=== PATIENT | female | born 1945 | race Caucasian/White ===

== ENCOUNTER 2021-09-30 13:50 | Outpatient (CLI) | payer OTHER, SELFPAY ==
--- NOTE | 2021-09-30 14:00 | CRLHL7_ITS ---
For Patients: As a result of the Century Cures Act, medical imaging exams and procedure reports are released immediately into your electronic medical record. You may view this report before your referring provider. If you have questions, please contact your health care provider. BILATERAL SCREENING MAMMOGRAM WITH COMPUTER-AIDED DETECTION AND TOMOSYNTHESIS TECHNIQUE: CC and MLO views were obtained. These mammographic images have been obtained using full-field digital technique. These mammographic images were interpreted with the benefit of computer-aided detection. Breast Tomosynthesis was used in this interpretation. COMPARISON FILM: 11/24/19, 11/18/18, 02/11/17 FINDINGS: There are scattered areas of fibroglandular density IMPRESSION: There is no radiographic evidence for malignancy. ASSESSMENT: BI-RADS Category 1: Negative RECOMMENDATION: Routine screening mammogram in 1 year. A lay language report of this examination will be provided to the patient. Mike Hooker M.D. Diagnostic Radiologist [email or web address] SHAUNA/Dictated by: Mike Hooker MD @ 10/01/2021 8:29:00 AM (Electronically Signed)
== END 2021-09-30 13:51 | disposition home or self-care (01) ==
LOC: MAMMO 13:52
PROVIDERS: PCP Internal Medicine; Visit Provider Internal Medicine
DX: Z12.31 Encounter for screening mammogram for malignant neoplasm of breast (principal)
CPT/HCPCS: 77063; 77067

== ENCOUNTER 2021-12-18 12:41 | Outpatient (CLI) | payer OTHER, SELFPAY ==
--- NOTE | 2021-12-18 13:00 | CRLHL7_ITS ---
For Patients: As a result of the Century Cures Act, medical imaging exams and procedure reports are released immediately into your electronic medical record. You may view this report before your referring provider. If you have questions, please contact your health care provider. INDICATION: Right non-arteritic ischemic optic neuropathy. TECHNIQUE: Multiplanar multisequence MR imaging acquired through the brain and orbits prior to and following intravenous contrast. COMPARISON: MRI brain 11/19/2012. FINDINGS: The extraocular muscles and lacrimal glands are symmetric in size and enhancement. No intraorbital mass or edema. No signal abnormality or pathologic enhancement within the optic nerves. No mass effect on the optic chiasm. Thinning of the right ocular lens. Prominence of the ventricles and sulci compatible with minimal diffuse cerebral volume loss. No mass effect or midline shift. Stable few small T2 FLAIR hyperintensities in the supratentorial white matter, nonspecific. No pathologic intracranial enhancement. No diffusion restriction to suggest acute infarction. No intracranial hemorrhage or pathologic extra-axial fluid collection. The major arterial flow voids of the skullbase are preserved. Small left maxillary sinus retention cyst. Minimal ethmoid sinus mucosal thickening. Trace right mastoid fluid. IMPRESSION: 1. No acute intracranial abnormality. 2. Stable few small T2 FLAIR hyperintensities in the supratentorial white matter are nonspecific, though most typical for sequelae of mild chronic microvascular ischemic changes or migraine headaches. 3. Thinning of the right ocular lens, compatible with prior cataract surgery. Otherwise, unremarkable MRI of the orbits. Dictated by Jarred Nicole MD @ 12/18/2021 5:56:26 PM (Electronically Signed)
== END 2021-12-18 12:42 | disposition home or self-care (01) ==
LOC: MRI 12:43
PROVIDERS: PCP Internal Medicine; Visit Provider Internal Medicine
DX: H47.011 Ischemic optic neuropathy, right eye (principal); I67.82 Cerebral ischemia
CPT/HCPCS: 70543; 70553; A9575

== ENCOUNTER 2022-01-09 07:24 | Outpatient (CLI) | payer OTHER, SELFPAY ==
[2022-01-09 11:25] LABS: Chloride* 111 mmol/L (96-114); Potassium* 4.2 mmol/L (3.6-5.1); Sodium* 141 mmol/L (135-149)
[2022-01-09 11:28] LABS: Blood Urea Nitrogen* 21 mg/dL (7-30); Carbon Dioxide* 23 mmol/L (20-32); Cholesterol* 139 mg/dL (90-199); Creatinine* 0.6 mg/dL (0.5-1.5); Estimated Glomerular Filt Rate 94 ml/min; Glucose* 99 mg/dL (60-115); Triglycerides* 69 mg/dL (40-149)
[2022-01-09 11:29] LABS: HDL Cholesterol* 74 mg/dL (>=50); LDL Cholesterol Calculated 51 mg/dL (<100)
[2022-01-09 11:49] LABS: Vitamin D 25 Hydroxy* 61 ng/mL (30-80)
[2022-01-09 12:02] LABS: TSH With Reflex to FT4* 0.426 uIU/mL (0.270-4.200)
== END 2022-01-09 07:25 | disposition home or self-care (01) ==
LOC: NFLDREF 07:24
PROVIDERS: PCP Internal Medicine; Visit Provider Internal Medicine
DX: E78.5 Hyperlipidemia, unspecified (principal); I10 Essential (primary) hypertension; M85.80 Other specified disorders of bone density and structure, unspecified site; E03.9 Hypothyroidism, unspecified
CPT/HCPCS: 80048; 80061; 82306; 84443

== ENCOUNTER 2022-11-04 09:50 | Outpatient (CLI) | payer OTHER, SELFPAY | END 2022-11-04 09:51 | disposition home or self-care (01) | PROVIDERS: PCP Internal Medicine; Visit Provider Internal Medicine | DX: E78.5 Hyperlipidemia, unspecified (principal); E03.9 Hypothyroidism, unspecified; I10 Essential (primary) hypertension; M85.80 Other specified disorders of bone density and structure, unspecified site | CPT/HCPCS: 80048; 80061; 82306; 84439; 84443 ==

== ENCOUNTER 2022-11-19 12:48 | Outpatient (CLI) | payer OTHER, SELFPAY ==
--- NOTE | 2022-11-19 13:00 | CRLHL7_ITS ---
For Patients: As a result of the Century Cures Act, medical imaging exams and procedure reports are released immediately into your electronic medical record. You may view this report before your referring provider. If you have questions, please contact your health care provider. DXA BONE MINERAL DENSITY STUDY Reason for exam: Osteopenia. Current height (in): 62. Weight (lb): 120. Menopause age: 53. Ethnicity: White. 1. Have you had a previous hip or vertebral fracture? No. 2. Have you had any fractures during your adult life which did not result from significant trauma (e.g., auto accident)? No. 3. Did either of your parents have a hip fracture? Yes. 4. Do you smoke? No. 5. Have you ever taken Glucocorticoids? No. 6. Do you have rheumatoid arthritis? No. 7. Do you have secondary osteoporosis? No. 8. Do you drink 3 or more alcoholic drinks per day? No. 9. Are you being treated for osteoporosis? *No. 10. Have you ever taken any of the following medications: Actonel, Evista, Fosamax, Miacalcin, Reclast, Boniva, Forteo, HRT (i.e. estrogen/hormone therapy), Protelos, Prolia, Vitamin D, Calcium, other ??? please specify. ANSWER: Yes, vitamin D, calcium. 11. Do you have any of the following medical conditions: Anorexia or bulimia, asthma or emphysema, end stage renal disease, hyperparathyroidism, any seizure disorders, cancer, inflammatory bowel diseases, hysterectomy, other ??? please specify. ANSWER: Yes, Asthma or emphysema. 12. What was your maximum height (inches)? 62. 13. Do you perform weight bearing exercise regularly? Yes. 14. Do you regularly consume dairy products? Yes. 15. Do you drink caffeinated beverages? Yes. 16. At what age did your period start? 12. 17. Are you premenopausal? No. 18. How many full term pregnancies have you had? 2 19. Have you ever missed your period for more than 6 months in a row (not including or menopause)? No. TECHNIQUE: Bone mineral density study was performed using the [employer]. FINDINGS: The results of the study expressed as bone mineral density (BMD) are as follows: Lumbar spine L1 to L4: BMD: 1.071 g/cm2. T-score: 0.2. Z-score: 2.7. Neck Left: BMD: 0.591 g/cm2. T-score: -2.3. Z-score: -0.2 Right: BMD: 0.674 g/cm2. T-score: -1.6. Z-score: 0.6. Total Left: BMD: 0.712 g/cm2. T-score: -1.9. Z-score: -0.0. Right: BMD: 0.793 g/cm2. T-score: -1.2. Z-score: 0.6. IMPRESSION: Osteopenia. *Comparison exams done prior to 07/2019 were performed on different unit, [facility]. COMPARISON: Compared with scan of 11/24/2019, the bone mineral density has increased by 0.7 percent at the spine and decreased by 3.0 percent at the hip. FRAX 10-year Fracture Risk Major Osteoporotic Fracture: 27 percent Hip Fracture: 17 percent Reported Risk Factors: [place] () Neck BMD= 0.597, BMI= 21.9, parental fracture Mike Hooker M.D. Diagnostic Radiologist [email or web address] SHAUNA/Dictated by: Mike Hooker MD @ 11/20/2022 8:32:00 AM (Electronically Signed)
== END 2022-11-19 12:49 | disposition home or self-care (01) ==
LOC: RAD 12:49
PROVIDERS: PCP Internal Medicine; Visit Provider Internal Medicine
DX: M85.88 Other specified disorders of bone density and structure, other site (principal)
CPT/HCPCS: 77080

== ENCOUNTER 2023-01-26 10:07 | Outpatient (CLI) | payer OTHER, SELFPAY ==
--- NOTE | 2023-01-26 10:30 | CRLHL7_ITS ---
For Patients: As a result of the Century Cures Act, medical imaging exams and procedure reports are released immediately into your electronic medical record. You may view this report before your referring provider. If you have questions, please contact your health care provider. INDICATION: Chronic cough TECHNIQUE: Chest 2 views. COMPARISON: None. FINDINGS: Cardiovascular and mediastinum: Heart size and vasculature are normal in caliber and appearance. Lungs and pleural spaces: Lungs are clear. No sign of infiltrate or mass. No sign of pleural effusion. No pneumothorax. Bones and soft tissues: No significant findings. IMPRESSION: No acute cardiopulmonary process. Dictated by Ezequiel Muhammad MD @ 01/26/2023 10:38:53 AM (Electronically Signed)
== END 2023-01-26 10:08 | disposition home or self-care (01) ==
PROVIDERS: PCP Internal Medicine; Visit Provider Internal Medicine
DX: R05.3 Chronic cough (principal)
CPT/HCPCS: 71046

== ENCOUNTER 2023-01-30 09:07 | Outpatient (CLI) | payer OTHER, SELFPAY ==
--- NOTE | 2023-01-30 09:15 | CRLHL7_ITS ---
For Patients: As a result of the Century Cures Act, medical imaging exams and procedure reports are released immediately into your electronic medical record. You may view this report before your referring provider. If you have questions, please contact your health care provider. BILATERAL SCREENING MAMMOGRAM WITH COMPUTER-AIDED DETECTION AND TOMOSYNTHESIS TECHNIQUE: CC and MLO views were obtained. These mammographic images have been obtained using full-field digital technique. These mammographic images were interpreted with the benefit of computer-aided detection. Breast Tomosynthesis was used in this interpretation. COMPARISON FILM: 09/30/21, 11/24/19, 11/18/18. FINDINGS: The breasts are heterogeneously dense, which may obscure small masses IMPRESSION: There is no radiographic evidence for malignancy. ASSESSMENT: BI-RADS Category 1: Negative RECOMMENDATION: Routine screening mammogram in 1 year. A lay language report of this examination will be provided to the patient. Mike Hooker M.D. Diagnostic Radiologist [email or web address] SHAUNA/Dictated by: Mike Hooker MD @ 01/30/2023 10:27:00 AM (Electronically Signed)
== END 2023-01-30 09:08 | disposition home or self-care (01) ==
LOC: MAMMO 09:08
PROVIDERS: PCP Internal Medicine; Visit Provider Internal Medicine
DX: Z12.31 Encounter for screening mammogram for malignant neoplasm of breast (principal); R92.2 Inconclusive mammogram
CPT/HCPCS: 77063; 77067

== ENCOUNTER 2023-02-04 07:59 | Outpatient (CLI) | payer OTHER, SELFPAY ==
--- NOTE | 2023-02-04 08:15 | CRLHL7_ITS ---
For Patients: As a result of the Century Cures Act, medical imaging exams and procedure reports are released immediately into your electronic medical record. You may view this report before your referring provider. If you have questions, please contact your health care provider. INDICATION: Chronic cough TECHNIQUE: Modified barium swallow. Fluoroscopic time 47 seconds. FINDINGS/IMPRESSION: There is spillage of contrast during solid food ingestion into the piriform sinuses. However, no penetration or aspiration. No obstruction to the flow barium. Dictated by Mike Hooker MD @ 02/04/2023 10:41:18 AM (Electronically Signed)
--- NOTE | 2023-02-04 13:48 | SLP.EVAL ---
Dr. Katalina Sandhu wanted me to send you a copy of my swallow study report. Thank you Meredith Adkins GLASS ROLLING MACHINE OPERATOR GLASS ROLLING MACHINE OPERATOR Zeldaal GLASS ROLLING MACHINE OPERATOR Abhijeet Start: 02/04/23 08:49 Freq: Status: Active Protocol: Document 02/04/23 08:50 JOHN (Rec: 02/04/23 09:05 [facility] [id number]) E-signed By Meredith Adkins CCC, GLASS ROLLING MACHINE OPERATOR GLASS ROLLING MACHINE OPERATOR System Review History & Reason For Referral Type of Speech Evaluation Modified Barium Swallow Evaluation Rehabilitation Order Evaluation Date of Order 01/23/23 Reason for Referral coughing sometimes with eating and drinking and other times at night. Treatment Diagnosis dysphagia Hearing Information Hearing Status hard of hearing Patient Orientation Orientation & Mental Status within normal limits GLASS ROLLING MACHINE OPERATOR Initial Assessment/POC Assessment & Impression Assessment/Impression Patient is a 77 year old female referred for a modified barium swallow study due to reports of coughing. She reports that sometimes she coughs with eating or drinking cold things such as ice cream or iced coffee. She also reports coughing at night when in bed. She has a history of reflux and takes medication for this. She reports she was diagnosed with asthma a number of years ago. She also has celiac disease. ORAL MOTOR FUNCTION AND DENTITION Patient able to adequately move tongue and lips and has adequate dentition. THIN LIQUID Patient took several sips of thin liquid by cup. She was able to initiate a swallow immediately and no penetration or aspiration occurred. PUREE Patient given a teaspoon of puree. She was able to manipulate and swallow without penetration, aspiration or pharyngeal residue. CRACKER WITH BARIUM PUREE Patient given a cracker ( gluten free) mixed with barium puree. She was able to chew the cracker well. She had premature spillage to the pyriform sinuses before initiating a swallow but once swallowed no penetration, aspiration or pharyngeal residue occurred. IMPRESSIONS AND RECOMMENDATIONS Patient did not exhibit any penetration or aspiration on any trials of food or liquid. She had premature spillage to the pyriform sinuses with a cracker solid while she was chewing but no penetration or aspiration. She was able to initiate a swallow immediately with thin liquids and had no penetration or aspiration with any liquid trial. Recommended to patient that she avoid straws and when eating, take small bites and try to swallow sooner. Images, results and recommendations reviewed with patient and questions answered. Therapist Signature & License # I Certify That Therapy Services Provided Therapist Signature & License Number Meredith Adkins CCC-GLASS ROLLING MACHINE OPERATOR, # [id number] Physician Signature Signature of Physician Indicates Medically Needed Services Physician Signature & Date Required Please Sign/Date Here Speech/Language Pathology Billing Units Billing Units Eval Swallow Motion Fluoro 1
== END 2023-02-04 08:00 | disposition home or self-care (01) ==
LOC: RAD 08:00
PROVIDERS: PCP Internal Medicine; Visit Provider Internal Medicine
DX: R05.3 Chronic cough (principal)
CPT/HCPCS: 74230; 92611

== ENCOUNTER 2023-04-06 10:19 | Outpatient (RCR) | payer OTHER, SELFPAY | END 2023-08-04 23:59 | disposition home or self-care (01) | PROVIDERS: PCP Internal Medicine; Visit Provider Internal Medicine | DX: R05.9 Cough, unspecified (principal); R13.10 Dysphagia, unspecified; Z51.89 Encounter for other specified aftercare | CPT/HCPCS: 92610 ==

== ENCOUNTER 2023-09-14 15:38 | Outpatient (CLI) | payer OTHER, SELFPAY | END 2023-09-14 15:39 | disposition home or self-care (01) | LOC: NFLDREF 15:46 | PROVIDERS: PCP Internal Medicine; Visit Provider Internal Medicine | DX: R10.12 Left upper quadrant pain (principal) | CPT/HCPCS: 80053 ==

== ENCOUNTER 2023-09-18 08:49 | Outpatient (CLI) | payer OTHER, SELFPAY ==
--- NOTE | 2023-09-18 09:00 | CRLHL7_ITS ---
For Patients: As a result of the Century Cures Act, medical imaging exams and procedure reports are released immediately into your electronic medical record. You may view this report before your referring provider. If you have questions, please contact your health care provider. Indication: LUQ Pain/discomfort x2 weeks. Swelling feeling. Technique: Noncontrast CT abdomen and pelvis performed. Please note that all CT scans at this facility use dose modulation, iterative reconstruction, and/or weight-based dosing when appropriate to reduce radiation dose to as low as reasonably achievable. Comparison: CT PET 08/31/2017 Findings: Dependent scarring is present within both lung bases. No pleural effusion. No acute infiltrate. Small hiatal hernia. Noncontrast enhanced liver appears normal. The spleen is normal in size. No splenomegaly. Incidental splenule. Pancreas is normal. Normal adrenal glands. Kidneys are within normal limits. Incidental duodenal diverticulum. Vascular calcifications. Normal ureters. Bladder normal. Calcified uterine fibroid measures 2 cm. Periuterine calcifications. Sigmoid diverticulosis. No diverticulitis. No bowel obstruction or free air. No free fluid or abscess. Normal appendix. Increased density of the stool is present. Degenerative disc disease at several levels particularly at L5-S1 and L2-3. Mild degenerative anterolisthesis of L4 on L5. Impression: No splenomegaly or ascites. Moderate colonic stool burden with increased density of the stool suggesting delayed transit/inspissation. Mild colonic diverticulosis without diverticulitis. Small uterine fibroids, similar to the prior study. Please note that all CT scans at this facility use dose modulation, iterative reconstruction, and/or weight-based dosing when appropriate to reduce radiation dose to as low as reasonably achievable. Dictated by Mike Hooker MD @ 09/18/2023 3:04:31 PM (Electronically Signed)
== END 2023-09-18 08:50 | disposition home or self-care (01) ==
LOC: CT 08:49
PROVIDERS: PCP Internal Medicine; Visit Provider Internal Medicine
DX: R10.12 Left upper quadrant pain (principal); K57.30 Diverticulosis of large intestine without perforation or abscess without bleeding; D25.9 Leiomyoma of uterus, unspecified
CPT/HCPCS: 74176

== ENCOUNTER 2023-11-04 10:06 | Outpatient (CLI) | payer OTHER, SELFPAY | END 2023-11-04 10:07 | disposition home or self-care (01) | LOC: NFLDREF 11-09 06:48 | PROVIDERS: PCP Internal Medicine; Referring Provider Internal Medicine; Visit Provider Internal Medicine | DX: E03.9 Hypothyroidism, unspecified (principal); E78.5 Hyperlipidemia, unspecified; I10 Essential (primary) hypertension; M85.80 Other specified disorders of bone density and structure, unspecified site | CPT/HCPCS: 80048; 80061; 82306; 84443 ==

== ENCOUNTER 2024-01-01 12:03 | Outpatient (CLI) | payer OTHER, SELFPAY | END 2024-01-01 12:04 | disposition home or self-care (01) | LOC: NFLDREF 01-02 20:15 | PROVIDERS: PCP Internal Medicine; Referring Provider Internal Medicine; Visit Provider Family Medicine | DX: R39.9 Unspecified symptoms and signs involving the genitourinary system (principal); N39.0 Urinary tract infection, site not specified | CPT/HCPCS: 87086; 87186 ==

== ENCOUNTER 2024-05-23 10:00 | Outpatient (RCR) | payer OTHER, SELFPAY ==
--- NOTE | 2024-02-26 12:14 | OT.OPOE ---
OT Outpatient Ortho Eval OT Outpatient Ortho Eval* Start: 02/26/24 11:23 Freq: Status: Active Protocol: Document 02/26/24 11:23 LCN (Rec: 02/26/24 12:08 LCN [id number]) E-signed By Effie Pepe, OTR/L, CLT OT OP Ortho Eval Details Complexity Complexity Low Insurance Information Insurance Information Medicare B Insurance Information Comments [employer] Gold Choice Outpatient History/Precautions Current Condition/Medical Diagnosis Referring Provider Dr. Wilkins /Attending. PCP is Dr. Darden. Medical Diagnoses R elbow pain after mechanical fall. Pt with symptoms of L carpal tunnel syndrome as noted below . Treatment Diagnosis R elbow pain and stiffness, daily numbness with L hand during all driving tasks. Date of Onset 12/08/23 Medical Conditions Depression,HTN,Respiratory, Arthritis Other Conditions Celiac Disease, Astma, Hypothyroidism pulmonary nodule, Cataracts.biopsy of breast and thyroid. History of CTR in the 70's, R CT issues with OT 2014, 2017. 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 CUrrently having symptoms of numbness Medical/Functional History Prior Level of Function/Mobility Pt recently , lives (I) in her home. Son lives in [place] with two active granddaughters 10-11 yrs old. 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 Enjoys playing piano, reading, vegetable gardening, lives near [place]. 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 Pt also shares in our visit that she has been having daily numbness in L hand, especially while driving and gripping/reading her books. Playing piano feels good. R elbow pain hurts worst when weightbearing /leaning/rolling onto it, has episodes of stinging and burning pain that are intermittent. X ray performed 01/14/24, no known fractures or osseous changes noted. Heating 3-4x/week feels helpful. Pain Assessment Pain Pain Yes Pain Comments 0-7/10 with weightbearing into R elbow Range of Motion and Strength Shoulder Range of Motion and Strength Shoulder Range of Motion and Strength WNL, Balanced strength with MMT 5/5 B. Elbow/Forearm Range of Motion and Strength Elbow/Forearm Range of Motion and WNL, Balanced strength with Strength MMT 5/5 B. No pain with testing. Overpressure into EL FL feels stiffness. Wrist Range of Motion and Strength Wrist Range of Motion and Strength WNL, Balanced strength with MMT 5/5 B. Hand/Finger/Thumb Range of Motion and Strength Hand/Finger/Thumb Range of Motion and Palpation-- Point tender at R Strength tip of olecranon and some edema pocketing at triceps insert, flexor retinaculum. Hand Pinch/Senior Mainframe Programmer Analyst Strength Hand Pinch/Senior Mainframe Programmer Analyst Strength Hand Pinch/Senior Mainframe Programmer Analyst Strength Left Hand,Right Hand Left Hand Senior Mainframe Programmer Analyst Strength Position 1 in Elbow 47 Flexion (lbs) Senior Mainframe Programmer Analyst Strength Position 2 in Elbow 47 Extension (lbs) Lateral Pinch Strength (lbs) 15 Right Hand Senior Mainframe Programmer Analyst Strength Position 1 in Elbow 46 Flexion (lbs) Senior Mainframe Programmer Analyst Strength Position 2 in Elbow 44 Extension (lbs) Lateral Pinch Strength (lbs) 15 OT Objective Data Hand Hand Dominance Right Hand Function Able to make full fitst, table top and oppose thumbs to base of small finger, but has regular hand joint pain stiffness.,, with bony cahges at all MCP and PIP rows. Sensation Sensation Assessment Summary Comments L hand numbness daily with driving tasks, sleeping and ripping her book, moderate intensity, taking 5-10 min to resolve after stretching. Upper Extremity Special Tests Median Nerve-Carpal Tunnel Durkan's Test Negative Right,Positive Left OT Problems Problems Problems Pain,Sensory Sensitivity, Lifting,Gripping,Pinching Problems Comments driving, reading with L side. Rolling and weightbearing into R elbow. Other Problems Opening Containers,Sleeping Patient Potential Excellent Assessment Assessment Assessment Given Elicia's?difficulty with edema, pain of R elbow, symptoms of L carpal tunnel syndrome per daily hand numbness with driving, sustained gripping, sleep, (+ ) Durkan's compression test of L hand and B hand stiffness/ OA changes limiting daily tasks, and she would benefit from skilled OT to address these areas. Occupational Therapy Treatment Plan - OP Potential Rehabilitation Potential Excellent Set Goals Goals Set with Patient Yes Goals Goals In 8-10 weeks, Elicia will demonstrate:? 1) Decreased pn/numbness to <2 /10 80% of the time with L hand sustained gripping, reading books and driving for 30 minutes. Pain < 2/10 with R elbow during rolling in bed, reading a book. 2) I HEP for stretching, gradual strengthening, joint protection and self mgmt strategies. 3)??Pt to be fit with functional bracing (for CMC, wrist,) and use adaptive strategies to protect joint integrity to support less pain with ADL. Treatment Plan Treatment Plan Evaluation,Edema Control, Iontophoresis,Joint Mobilization,Manual Therapy, Splinting,Ultrasound Expected Frequency 1-2x Week Expected Duration 8-10 Weeks Home Program Home Program Home Program Specifics Pt given info to order neoprene R elbow velcro sleeve with padding for night times and tetragrip E compression for R elbow, daytime compression. Look into night brace for L wrist noc. Certification Certification Statement I Certify That: Therapy Services Provided Certification Information Clinic ID # [id number] Initial Certification Date 02/26/24 Recertification Due Date 05/26/24 Provider Signature Required Yes Provider Signature Shows Agreement With POC & Medical Necessity Physician NPI Number Write NPI# Here Physician Comment/Change Comment or Changes Physician Signature & Date Requested Please Sign/Date Here
== END 2024-09-20 23:59 | disposition home or self-care (01) ==
PROVIDERS: PCP Internal Medicine; Visit Provider Family Medicine
DX: M25.521 Pain in right elbow (principal); Z51.89 Encounter for other specified aftercare
CPT/HCPCS: 97035; 97110; 97140; 97165; 97530; X5282

== ENCOUNTER 2024-06-23 07:13 | Outpatient (RCR) | payer OTHER, SELFPAY ==
--- NOTE | 2024-06-23 13:06 | PT.OPEX ---
PT [place] [facility] PT [facility] Outpatient Eval Start: 06/23/24 08:52 Freq: Status: Active Protocol: Document 06/23/24 08:53 PRESLEY (Rec: 06/23/24 13:01 PRESLEY [id number]) E-signed By Manju Weaver DPT Physical Therapy Outpatient Evaluation Insurance Information Recert Due Date 09/21/24 Insurance Name [employer],Medicare B Medical Diagnosis L scapula pain Treating Diagnosis L shoulder/scap/UBN pain, impaired posture, UBN/shoulder muscle tightness, L shoulder weakness, L elbow/forearm/ wrist/hand pain/tingling/ numbness, L UE weakness with difficulty grasping/squeezing/ opening jars, interrupted sleep Subjective Subjective Patient reports L shouder and L shoulder blade pain, tightness, stiffness. Reports falling last Fall in Oct/Nov when she was trying to clean up some trash from the ditch area. She had R elbow pain after the fall. Saw MD in Dec and started with OT for R elbow pain in Feb. Patient reports her R elbow was feeling better but then she flared up L hand tingling/ numbness back in February. Feels she was maybe having some L hand sx last Fall as well but difficult to recall and unsure what flared up her pain/sx. That progressed into L elbow/forearm tingling/ numbness and then eventually L shoulder/shoulder blade pain. L shoulder/UE pain/sx are increased with driving. Tingling/numbness in L forearm /hand are fairly constant, rated 3/10. Patient is R handed. She reports noticing L hand/UE weakness with activities, grasping, squeezing, opening lids/jars. She is active with exercise, walking, some light wts, resistance bands at home. She has been doing her OT exercises. OT recommended she return to MD for her new L UE pain/sx. MD referred to PT for L shoulder pain and referred to ortho. Patient report having appt with Dr Silva on June 07. He injected L wrist. Patient reports some decrease in pain/ sx since the injection but not gone. Pain range 2-8/10 for L shoulder/shoulder blade and pain/sx down L UE. She is using tylenol in the evenings. Sleep is interrupted some, difficult to get comfortable and fall asleep. Using heating pad to L shoulder 3-4x /week. Also using lidocaine patches to L shoulder about 2x /week. States she does not have any additional OT scheduled. No MD follow ups scheduled at this time. Date of Last Physician Visit 05/30/24 Current Work Status Retired Precautions Treatment Precautions/Contraindications fall last , depression , HTN, resp issues, chronic cough, OA Per Dr Silva note - L RC tear, L cubital tunnel syndrome, L carpal tunnel syndrome, possible cervical involvement - return for MRI, EMG as needed. Objective Other/Pertinent Objective Patient was referred to ortho for evaluation and injection. She saw Dr Silva 06/07/24. Per Dr Silva's assessment/ note patient with L RC tear, L CTS, L cubital tunnel syndrome, and possible cervical spine involvement. Patient had L wrist injection and reports some decrease in her L wrist/hand pain/sx after the injection but not gone. Per MD note, next step would caio MRI of shoulder, EMG L UE, MRI of neck. Currently not scheduled for any imaging and no MD follow up scheduled. Assessment Assessment/Impression Patient is a 78 year old female with L shoulder/scap/ UBN pain, impaired posture, UBN/shoulder muscle tightness, L shoulder weakness, L elbow/ forearm/wrist/hand pain/ tingling/numbness, L UE weakness with difficulty grasping/squeezing/opening jars, interrupted sleep. Pain range 2-8/10. Patient reports multiple pain/sx issues starting last when she fell. She had R elbow pain, treated with OT and improved. Patient then had flare up of L wrist/hand tingling/numbness that progressed up to forearm/elbow tingling/numbness, and now up to L shoulder/shoulder blade pain. Patient referred to PT for L shoulder blade pain/ shoulder pain. She is tight, tender with palpation L UBN/ shoulder region. Tightness, dyskinesia with L scap motion with patient reporting some crunching, grinding. Bilateral shoulder AROM is WFL , equal R/L. Patient reports some tightness, pain with L shoulder AROM. L shoulder strength: flex 4-/5 with pain, scap/abd 4-/5 with pain, IR/ ER 4/5. 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 Reviewed with patient that PT focus would be on UBN/ shoulder region. Patient to continue with the exercises given to her by OT. Reviewed some forearm, wrist stretching , nerve glides. Discussed with patient that if she is not improving she should return to MD for additional testing with MRI and/or EMG. Also discussed getting an additional OT order to address L cubital tunnel and carpal tunnel syndromes. Patient expressed understanding. Patient would benefit from skilled PT for pain/sx management, return to pain free L shoulder ROM, improved L scap ROM/mobility, posture/ body mechanics training, L shoulder/UBN strengthening, return to functional use of L shoulder/UE, and establishment of HEP. Plan of Care Rehabilitation Potential Good Physical Therapy Goals 1. Decrease L shoulder pain to less than/equal to 3/10 with daily activities and with the progression of PT activities over the next 6-8 weeks. 2. Improve L shoulder PROM to WFL over the next 6-8 weeks to prepare for return to functional use of L shoulder/UE. 3. Improve L shoulder AROM to WFL over the next 10-12 weeks for return to functional use of L shoulder/ UE with daily/household activities. 4. Improve L shoulder/UE strength over the next 10-12 weeks for return to full functional use of L shoulder/UE with daily/ household activities. 5. Patient will be I with HEP within 12 weeks for progression toward above goals, ongoing self management of pain/sx, ongoing self improvements in ROM/strength/function, and for return to full functional use of L shoulder/UE with daily/ household activities. Coordination/Communication With Referral Source Treatment Plan/Direct Interventions Manual Therapy,Therapeutic Exercises Frequency/Duration 1x/week Patient Will Be Discharged From Therapy Completion of LTG(s),Skills Plateau,Independent w/HEP, Independently Progressing Evaluation Billing Untimed Code Treatment Minutes 34 Complexity Moderate Certification Information Initial Certification Date 06/23/24 Ending Certification Date 09/21/24 Provider Signature Required Yes Provider Signature Shows Agreement With POC & Medical Necessity Physician NPI Number Write NPI# Here Physician Comment/Change : Physician Signature & Date Requested Please Sign/Date Here
== END 2024-10-21 23:59 | disposition home or self-care (01) ==
PROVIDERS: PCP Internal Medicine; Visit Provider Internal Medicine
DX: M89.8X1 Other specified disorders of bone, shoulder (principal); Z51.89 Encounter for other specified aftercare
CPT/HCPCS: 97110; 97162

== ENCOUNTER 2024-10-03 13:17 | Emergency (ER) | payer OTHER, SELFPAY ==
[2024-10-03] VITALS (12 sets, daily range): BP systolic 156–190; BP diastolic 77–88; PULSE 63–76; RESP 10–28; TEMP 36.2; O2SAT 97–99; BMI 21.8
--- OUTSIDE RECORDS SUMMARY | 2024-10-03 13:22 | XMS_ITS | Encounter Summary ---
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 Phone Unavailable Primary Care Provider Unavailabl e Prior Encounters Date Type Department Care Team Description 03/14/2019 Converted 13x Documents [place] [facility] [address] [place] [phone] <No scans attached> 03/14/2019 Converted CPS Chart Documents [place] [facility] [address] [place] [phone] <No scans attached> Plan of Treatment Not on file Procedures Procedure Name Priority Date/Time Associated Diagnosis Comments OFFICE VISIT FOR OBSERVATION (DURING REGULARLY SCHEDULED HOURS) - NO OTHER SERVICES PERFORMED Routine 10/06/2013 1:00 AM MDT Visit Diagnoses Not on file
--- OUTSIDE RECORDS SUMMARY | 2024-10-03 13:22 | XMS_ITS | Clinical Summary ---
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
--- NOTE | 2024-10-03 15:41 | ED_ITS ---
HPI - General Adult General Date Seen: 10/03/24 Chief complaint: Neuro Symptoms/Altered Deficit Stated complaint: Confusion Time Seen by Provider: 10/03/24 15:23 History of Present Illness HPI narrative: 79-year-old female with a past medical history of asthma, hyperlipidemia, hypertension, hypothyroidism, celiac disease, GERD presenting to the ER today because she had an episode of acute memory loss that occurred this morning. It began roughly 8 and 9:00 a.m. or so and lasted about an hour or an hour and half. Patient says, ?took a while to figure out who I was and where I was. I could remember anything. ? History is obtained mostly from the patient but is supplemented by her wnaklpfy-su-keu. She is generally healthy. She has a TIA that apparently transiently affected the left half of her body about 20 or 30 years ago. No other known stroke or cerebrovascular disease. She has been healthy and well lately. No other recent illness, fall. She was normal yesterday and when she went to bed last night. She knows that she had trouble sleeping last night and then she woke up about 1:00 a.m. in just ?did not feel comfortable. ?. She can not really describe what was wrong. Was not really pain although she did take a dose of Tylenol. She got up to go to the bathroom to urinate she thought maybe her bladder was too full, but it was not. She was able to walk when she went to the bathroom. She slept in later than normal this morning and did wake up to about 9:00 a.m. when her wxixhkeo-oc-ozi called her. She normally wakes up at about 7. When she woke up she was just confused. She did not know what day it was and she could remember that her son and grandson who had recently visited with had gone back to [place]. Ohrjhauu-uz-kps confirms that They went back 4 days ago on . She seemed to be having trouble speaking and just seemed confused. Symptoms lasted about an hour or an hour and half. She is largely doing better now. However she does have a little bit of dizziness and a slight spinning. After arriving here in the ER she also noted that she had a little bit of a buzzing feeling in the back of her head. Is not really a muscle spasm or pain and is not a throbbing pulsing buzzing. She can not really describe. She is not otherwise have a headache. No blurry vision or double vision. She was having trouble speaking and finding the right words to say but did not have slurred speech. No facial droop. No unilateral weakness. No focal numbness. Related Data Home Medications ?Medication ?Instructions ?Recorded ?Confirmed cholecalciferol (vitamin D3) 25 1,000 unit PO DAILY 06/07/24 mcg (1,000 unit) tablet fluticasone propionate 50 2 intranasal DAILY 01/13/22 06/07/24 mcg/actuation nasal spray,suspension loratadine 10 mg capsule 10 mg PO DAILY 01/13/2205/24 naproxen sodium 220 mg tablet 220 mg PO BID 01/13/22 0 06/07/24 fluticasone propionate 230 2 puff inhalation BID 10/1406/07/24 mcg-salmeterol 21 mcg/actuation HFA inhaler (Advair HFA) Previous Rx's ?Medication ?Instructions ?Recorded albuterol sulfate 2.5 mg/3 mL 2.5 mg (3 mL) inhalation Q6H PRN 01/13/22 (0.083 %) solution for nebulization bronchospasm #75 m L alendronate 35 mg tablet 35 mg PO QWEEK #12 tabs 10/24 08/16 atorvastatin 40 mg tablet 40 mg PO QHS #90 tabs levothyroxine 75 mcg tablet 75 mcg PO QDAY #90 tabs losartan 50 mg tablet 50 mg PO QDAY #90 tabs 11/08 montelukast 10 mg tablet 10 mg PO .HS #90 tabs omeprazole 40 mg capsule,delayed 40 mg PO DAILY #90 ca ps 11/09/23 release albuterol sulfate 90 mcg/actuation 4 puff inhalation Q 6H PRN 05/30/24 aerosol inhaler (Ventolin HFA) bronchospasm #25.5 gram s gabapentin 300 mg capsule 600 mg (2 x 300 mg) PO QHS # 180 07/12/24 caps famotidine 20 mg tablet 20 mg PO BID #84 tabs citalopram 20 mg tablet 20 mg PO QDAY #90 tabs 08/04 triamcinolone acetonide 0.1 % 1 applic topical BID #80 grams 08/04/24 topical ointment Allergies Allergy/AdvReac Type Severity Reaction Status Date / Time sulfadiazine Allergy Unknown Unknown Verified 06/07/24 10:16 Gluten Meal Allergy Unknown Unknown Uncoded 06/07/24 10:16 [facility] Medical History History of solitary pulmonary nodule ?Z87.898 - Personal history of other specified conditions (ICD-10) Surgical History (Reviewed 06/07/24 @ 10:19 by Khloe Reynoso ~ [facility], [facility]) History of cataract surgery ?Z98.49 - Cataract extraction status, unspecified eye (ICD-10) Status post biopsy of thyroid gland ?Z98.890 - Other specified postprocedural states (ICD-10) History of breast biopsy ?Z98.890 - Other specified postprocedural states (ICD-10) History of benign breast biopsy ?Z98.890 - Other specified postprocedural states (ICD-10) History of carpal tunnel surgery ?Z98.890 - Other specified postprocedural states (ICD-10) S/P thyroid biopsy ?Z98.890 - Other specified postprocedural states (ICD-10) Social History (Reviewed 06/07/24 @ 10:19 by Khloe Reynoso ~ [facility], [facility]) What is your current living situation?: I presently have a place to live Problems where you live: pests, such as bugs, ants, or mice Problems where you live details: [address]s house, horrible basement with mice coming in from crawl spaces In the past 12 months, utilities in danger of being shut off: no In past 12 months, lack of transportation kept you from medical appts, meetings, work, or getting things needed for daily living: no In the past 12 mos, have been you worried that your food would run out before you had money to buy more?: never true In the past 12 mos, the food you bought just didn't last and you didn't have money to buy more?: never true Smoking Status: Never smoker How often do you have a drink containing alcohol: 2-4 times a month AUDIT-C Alcohol total score: 2 Non-prescribed substance use: denies use How often does anyone, including family, friends and others, physically hurt you : never How often does anyone, including family, friends and others, insult or talk down to you: never How often does anyone, including family, friends and others, threaten you with harm: never How often does anyone, including family, friends and others, scream or curse at you: never Health Related Social Needs: Inadequate housing (Z59.1) Exam Narrative: Exam Narrative: Constitutional: Appears well-developed and well-nourished. Alert. Conversant. Non toxic. HENT: Head: Atraumatic. Nose: Nose normal. Mouth/Throat: Oral mucosa is clear and moist. no trismus. Pharynx normal. Tonsils symmetric. No tonsillar enlargement, erythema, or exudate. Eyes: Conjunctivae normal. EOM normal. Pupils equal, round, and reactive to light. No scleral icterus. Neck: Normal range of motion. Neck supple. No tracheal deviation present. Cardiovascular: Normal rate, regular rhythm. No gallop. No friction rub. No murmur heard. Symmetric radial artery pulses Pulmonary/Chest: Effort normal. No stridor. No respiratory distress. No wheezes. No rales. No rhonchi . No tenderness. Abdominal: Soft. Bowel sounds normal. No distension. No mass. No tenderness. No rebound. No guarding. Musculoskeletal: RUE: Normal range of motion. No tenderness. No deformity LUE: Normal range of motion. No tenderness. No deformity RLE: Normal range of motion. No edema. No tenderness. No deformity LLE: Normal range of motion. No edema. No tenderness. No deformity Neurological: Mental status normal. Attention normal. Alert and oriented x3. GCS 15. Memory normal. She can recall recent events and even recalls feeling confused this morning Speech fluent. Cognition normal. Cranial Nerves intact II-XII except I did not formally test gag or visual acuity. EOMI. Palate elevates symmetrically and tongue protrudes in the midline. Strength: 5/5 trapezius on the right and left 5/5 deltoid on the right and left 5/5 biceps on the right and left 5/5 triceps on the right and left 5/5 bleacher pulp on the right and left 5/5 thumb opposition on the right and le ft 5/5 finger abduction on the right and le ft 5/5 hip flexors (L3) on the right and le ft 5/5 quadriceps (L4) on the right and lef t 5/5 tibialis anterior on the right and l eft 5/5 EHL (L5) on the right and left 5/5 gastrocnemius (S1) on the right and left 5/5 hamstring on the right and left Sensation intact to light touch in both upper extremities (C4-T1) Sensation intact to light touch in Both lower extremities (L4-S1). Finger to nose and coordination normal. Gait normal. NIHSS=0. Skin: Skin is warm and dry. No rash noted. No pallor. Normal capillary refill. Psychiatric: Normal mood. Normal affect. Polite. Conversant. Denies any stressors. Const: Vital Signs, click to edit/add: Vital Signs - 24 hr 10/03/24 13:47 10/03/24 15:25 10/03/24 15:28 Temperature 97.2 F L Pulse Rate 65 Pulse Rate [Pulse Oximeter] 75 76 Respiratory Rate 20 18 28 H Blood Pressure Blood Pressure [Ri ght Upper Arm] 156/77 H 190/83 H Pulse Oximetry 98 97 98 Oxygen Delivery Me thod Room Air Room Air 10/03/24 15:30 10/03/24 15:45 10/03/24 15:46 Temperature Pulse Rate 72 63 68 Pulse Rate [Pulse Oximeter] Respiratory Rate 10 L 14 15 Blood Pressure 186/88 H Blood Pressure [Ri ght Upper Arm] Pulse Oximetry 99 99 99 Oxygen Delivery Me thod 10/03/24 16:00 10/03/24 16:15 10/03/24 16:30 Temperature Pulse Rate Pulse Rate [Pulse Oximeter] Respiratory Rate 24 13 19 Blood Pressure Blood Pressure [Ri ght Upper Arm] Pulse Oximetry Oxygen Delivery Me thod 10/03/24 17:37 10/03/24 17:45 10/03/24 19:01 Temperature Pulse Rate 70 68 65 Pulse Rate [Pulse Oximeter] Respiratory Rate 16 Blood Pressure 167/87 H Blood Pressure [Ri ght Upper Arm] Pulse Oximetry 99 99 99 Oxygen Delivery Me thod Room Air Course Vital Signs Vital signs: Initial Vital Signs Temperature 97.2 F L 10/03/24 13:47 Temperature Source Temporal Artery Scan 10/03/24 13:47 Pulse Rate 75 10/03/24 13:47 Respiratory Rate 20 10/03/24 13:47 Blood Pressure 156/77 H 10/03/24 13:47 Blood Pressure Mean 103 10/03/24 13:47 Blood Pressure Position Sitting 10/03/24 13:47 Pulse Oximetry 98 10/03/24 13:47 Oxygen Delivery Method Room Air 10/03/24 13:47 Vital Signs Temperature 97.2 F L 10/03/24 13:47 Pulse Rate 75 10/03/24 13:47 Respiratory Rate 20 10/03/24 13:47 Blood Pressure 156/77 H 10/03/24 13:47 Pulse Oximetry 98 10/03/24 13:47 Oxygen Delivery Method Room Air 10/03/24 13:47 Temperature 97.2 F L 10/03/24 13:47 Pulse Rate 65 10/03/24 19:01 Respiratory Rate 16 10/03/24 19:01 Blood Pressure 167/87 H 10/03/24 19:01 Pulse Oximetry 99 10/03/24 19:01 Oxygen Delivery Method Room Air 10/03/24 19:01 Medical Decision Making [facility] Narrative Medical decision making narrative: Pleasant 79-year-old female presenting to the ER today with her [id number]-uux with concern that she had an episode this morning where she was have very confused, disoriented to date, and was having trouble spaced verbalizing her thoughts. It sounds like this is more of an episode of confusion or amnesia rather than true aphasia. There were no other noted focal neurologic deficits such as slurred speech, facial numbness or weakness. Droop, or unilateral numbness or weakness By the time she arrived here in the ER she was mentating normally and neurologically intact. Initial NIH stroke scale was 0. Differential would include acute delirium with alternating mental status as well as TGA, stroke, TIA, seizure. Noncontrast head CT is normal. No evidence for bleed or large tumor or cerebral edema or hydrocephalus. MRI of the patient's brain shows no acute findings such as an acute stroke. Also no other signs of tumor. CT angiogram of the patient's head neck is normal. No evidence for any significant cerebrovascular disease, carotid stenosis, or aneurysmal disease. Discussed with stroke neurology from [facility], Dr. Kirk. We have reviewed the patient's presenting symptoms, lab findings, imaging findings. He agrees that the patient is safe for outpatient management. He suspects that this was probably an episode of TGA. Laboratory workup shows normal CBC. White count is normal. She is not febrile. No evidence for infection. He electrolytes are normal including normal sodium and potassium. Kidney function and blood sugar are normal. Transaminases are mildly abnormal with an AST of 41 and ALT of 39. These are essentially unchanged compared to 2023. No evidence for any acute liver failure or hepatic encephalopathy. Total bilirubin is normal. Alk-phos is normal. She did not have any abdominal pain or right upper quadrant tenderness to raise concern for biliary colic. Patient's blood pressure is elevated. Initially was about 180/100. Subsequently came down to about 160s/80s. At this point no signs of any acute end-organ damage such as stroke, intracranial hemorrhage, mi, renal failure. No need for admission for blood pressure management. Consult for the patient to continue her home blood pressure medications, do daily blood pressure measurements and follow-up with PCP within 3-5 days. Precautions for return to the ER reviewed in detail with the patient and provided in writing as well. Questions answered. She is very pleased with her normal MRI and eager for discharge home with her family. Lab Data Labs: Lab Results 10/03/24 Range/Units 16:30 WBC 5.85 (4.50-11.00) K/uL RBC 4.78 (4.00-5.20) m/uL Hgb 14.1 (12.0-16.0) gm/dL Hct 42.2 (33.0-51.0) % MCV 88 (80-100) fL MCH 30 (26-34) pg MCHC 33 (32-36) gm/dL RDW Coeff of Kelly 12.8 (11.5-15.5) % Plt Count 253 (140-440) K/uL Neut % (Auto) 61.8 (42.0-72.0) % Lymph % (Auto) 25.8 (20-44) % [place] % (Auto) 7.0 (0.0-11.0) % Eos % (Auto) 5.0 (0.0-7.0) % Baso % (Auto) 0.2 (0.0-3.0) % Neut # (Auto) 3.62 (1.7-7.0) K/uL Lymph # (Auto) 1.51 (0.90-2.90) K/uL [place] # (Auto) 0.40 (0.00-0.90) K/UL Eos # (Auto) 0.29 (0.00-0.50) K/uL Baso # (Auto) 0.01 (0.00-0.30) K/uL Abs Immat Gran (auto) 0.01 (0.00-0.30) K/uL Imm/Tot Granulo (auto) 0.2 % VBG pH 7.382 (7.32-7.43) VBG pCO2 40 (40-50) mmHG VBG pO2 31.7 (25-47) mmHG VBG HCO3 24 (21-28) mmol/L Sodium 140 (135-149) mmol/L Potassium 3.8 (3.6-5.1) mmol/L Chloride 110 (96-114) mmol/L Carbon Dioxide 23 (20-32) mmol/L Anion Gap 7 (7-15) mEq/L BUN 10 (7-30) mg/dL Creatinine 0.6 (0.5-1.5) mg/dL Estimated Creat Clear 36.67 Estimated GFR 92 ml/min Glucose 86 (60-115) mg/dL Lactate 1.1 (0.5-1.9) mmol/L Calcium 9.5 (8.4-10.6) mg/dL Total Bilirubin 0.5 (0.1-1.5) mg/dL AST 41 H (12-35) U/L ALT 39 H (4-35) U/L Alkaline Phosphatase 64 (40-150) U/L Troponin I < 0.01 (0.01-0.04) ng/mL Total Protein 7.1 (6.0-8.3) g/dL Albumin 4.4 (3.3-5.0) g/dL Imaging Data CT scan - head: Attestation: I have reviewed the pertinent imaging results. Radiologist's impression: IMPRESSION: No acute intracranial process per unenhanced head CT. MR Brain: Attestation: I have reviewed the pertinent imaging results. Radiologist's impression: IMPRESSION: 1. No acute intracranial abnormality. 2. Mild generalized cerebral volume loss. Chronic deep white matter small vessel ischemic changes 3. No acute or chronic intracranial hemorrhage CTA Head and Neck: Attestation: I have reviewed the pertinent imaging results. Radiologist's impression: FINDINGS: CTA head: Bilateral carotid siphons [place] are patent. Major bilateral intracranial arterial circulations are patent with no focal high-grade stenosis, large vessel occlusion, or aneurysm. CTA neck: Patent bilateral carotid artery circulations from the origin to the skullbase. No focal stenosis. Patent bilateral vertebral circulations from the origin to the vertebrobasilar junction. No high-grade stenosis or dissection. ECG Data Attestation: I personally reviewed and interpreted this ECG as follows: Interpretation: Normal sinus rhythm Rate 69 IA interval 160 Normal QRS axis No ST segment elevation or depression QTC 467 QT 436 Discharge Plan Discharge Clinical Impression: Altered mental status, Amnesia, global, transient, Hypertension Patient Disposition: Home, Self-Care Condition: Stable Instructions: Hypertension (ED), Altered Mental Status (ED), Transient Global Amnesia (ED) Additional Instructions: As we discussed, so far your workup looks reassuring. Your MRI and CT scan see not show any sign of any new strokes, brain tumors, bleeding in your brain, or other life-threatening problems. We have consulted with the stroke neurologist from [facility]. At this point we suspect that you probably had an episode of a condition called ?transient global amnesia. ?. This is uncommon conditions that can temporarily affect and otherwise normal person's memory. We also note that your blood pressure is somewhat elevated today. Please measure your blood pressure once per day and keep a record. Follow with your regular doctor within 3-5 days for a checkup. We do not expected to have any more episodes of confusion or amnesia. If you notice any recurring symptoms or if you have any other concerns such as slurred speech, droopy face, weakness in your arms or legs, headache, fever, chest pain, trouble breathing, or if you have any other problems please come back to the ER immediately. Prescriptions: No Action levothyroxine 75 mcg tablet 75 mcg PO QDAY Qty: 90 3RF loratadine 10 mg capsule 10 mg PO DAILY cholecalciferol (vitamin D3) 25 mcg (1,000 unit) tablet 1,000 unit PO DAILY fluticasone propionate 50 mcg/actuation spray,suspension 2 intranasal DAILY naproxen sodium 220 mg tablet 220 mg PO BID albuterol sulfate 2.5 mg /3 mL (0.083 %) solution for nebulization 2.5 mg inhalation Q6H PRN (Reason: bronchospasm) Qty: 75 5RF albuterol sulfate [Ventolin HFA] 90 mcg/actuation HFA aerosol inhaler 4 puff inhalation Q6H PRN (Reason: bronchospasm) Qty: 25.5 6RF fluticasone propion-salmeterol [Advair HFA] 230-21 mcg/actuation HFA aerosol inhaler 2 puff inhalation BID alendronate 35 mg tablet 35 mg PO QWEEK Qty: 12 3RF losartan 50 mg tablet 50 mg PO QDAY Qty: 90 3RF atorvastatin 40 mg tablet 40 mg PO QHS Qty: 90 3RF montelukast 10 mg tablet 10 mg PO .HS Qty: 90 3RF omeprazole 40 mg capsule,delayed release(DR/EC) 40 mg PO DAILY Qty: 90 3RF gabapentin 300 mg capsule 600 mg PO QHS Qty: 180 2RF famotidine 20 mg tablet 20 mg PO BID Qty: 84 0RF triamcinolone acetonide 0.1 % ointment 1 applic topical BID Qty: 80 0RF Rx Instructions: APPLY TO AFFECTED AREA until improved, do not use on face citalopram 20 mg tablet 20 mg PO QDAY Qty: 90 0RF Follow Up/Referrals: Kelley Darden MD [Primary Care Provider, Internal Medicine] Stand Alone Forms: [facility] Info Instructions Procedures ABG Interpretation ABG Results: 10/03/24 16:30 VBG pH 7.382 VBG pCO2 40 VBG pO2 31.7 VBG HCO3 24
--- NOTE | 2024-10-03 16:01 | CRLHL7_ITS ---
For Patients: As a result of the Century Cures Act, medical imaging exams and procedure reports are released immediately into your electronic medical record. You may view this report before your referring provider. If you have questions, please contact your health care provider. INDICATION: Acute stroke, transient aphasia and memory loss. TECHNIQUE: CTA head using intravenous contrast administration with bolus tracking, 3D angiographic rendering using maximum intensity projection (MIP) and images permanently archived. CTA neck using intravenous contrast administration with bolus tracking, 3D angiographic rendering using maximum intensity projection (MIP) and images permanently archived. FINDINGS: CTA head: There is minor intracranial atherosclerotic disease. There is normal opacification of the intracranial vasculature. There is no large vessel occlusion or significant intracranial stenosis. No aneurysm is identified. CTA neck: There is no significant carotid artery stenosis or dissection. There is no significant vertebral artery stenosis or dissection. IMPRESSION: No acute intracranial abnormality at CTA. No significant carotid or vertebral artery stenosis or dissection. Please note that all CT scans at this facility use dose modulation, iterative reconstruction, and/or weight-based dosing when appropriate to reduce radiation dose to as low as reasonably achievable. Dictated by Efren Jaime MD @ 10/03/2024 6:52:58 PM (Electronic Signature) SP/Dictated by: Efren Jaime MD @ 10/03/2024 6:53:00 PM (Electronically Signed)
--- NOTE | 2024-10-03 16:01 | CRLHL7_ITS ---
For Patients: As a result of the Century Cures Act, medical imaging exams and procedure reports are released immediately into your electronic medical record. You may view this report before your referring provider. If you have questions, please contact your health care provider. INDICATION: The aphasia. Memory loss. COMPARISON: CT from same day. 12/18/2021. Technique Multiplanar T1, T2, FLAIR and diffusion-weighted imaging. FINDINGS: Mild generalized volume loss. Scattered patchy foci of T2/FLAIR signal hyperintense within the white-matter of both cerebral hemispheres are nonspecific but likely represent chronic deep white matter small vessel ischemic changes. No intracranial hemorrhage. No abnormal ventricular dilatation. Intracranial vascular flow voids preserved. No mass effect. No midline shift. No restricted diffusion to suggest acute ischemia. No susceptibility artifact of remote hemorrhage. Bilateral orbits are unremarkable. Normal appearing sella. Visualized paranasal sinuses and mastoid air cells are unremarkable. IMPRESSION: 1. No acute intracranial abnormality. 2. Mild generalized cerebral volume loss. Chronic deep white matter small vessel ischemic changes 3. No acute or chronic intracranial hemorrhage Dictated by Thomas Mccord MD @ 10/03/2024 5:19:48 PM (Electronically Signed)
--- NOTE | 2024-10-03 16:02 | CRLHL7_ITS ---
For Patients: As a result of the Century Cures Act, medical imaging exams and procedure reports are released immediately into your electronic medical record. You may view this report before your referring provider. If you have questions, please contact your health care provider. INDICATION: .transient aphasia and memory loss TECHNIQUE: Head CT without contrast. COMPARISON: Dating back to 2018. FINDINGS: Periventricular areas of low attenuation, likely due to chronic small vessel ischemic changes. Generalized volume loss. Atherosclerosis. No intracranial hemorrhage. No discrete mass or mass effect. There is no midline shift. The basilar cisterns are patent. No hydrocephalus. The hampton-white matter interface is otherwise preserved. No acute osseous abnormality. No extracalvarial soft tissue abnormality. The mastoid air cells are clear. The paranasal sinuses are well-aerated. The visualized portions of the orbits and globes are unremarkable. IMPRESSION: No acute intracranial process per unenhanced head CT. Please note that all CT scans at this facility use dose modulation, iterative reconstruction, and/or weight-based dosing when appropriate to reduce radiation dose to as low as reasonably achievable. Dictated by Mike Luu MD @ 10/03/2024 5:03:06 PM (Electronically Signed)
[2024-10-03 16:51] LABS: Hematocrit 42.2 % (33.0-51.0); Hemoglobin* 14.1 gm/dL (12.0-16.0); Immature Granulocytes Abs Auto 0.01 K/uL (0.00-0.30); Immature Granulocytes Pct Auto 0.2 %; Lymphocytes Absolute Auto 1.51 K/uL (0.90-2.90); Mean Corpuscular HGB Conc 33 gm/dL (32-36); Mean Corpuscular Hemoglobin 30 pg (26-34); Mean Corpuscular Volume 88 fL (80-100); RDW Coefficient of Variation % 12.8 % (11.5-15.5); Red Blood Count 4.78 m/uL (4.00-5.20); White Blood Count* 5.85 K/uL (4.50-11.00)
[2024-10-03 16:52] LABS: Slide Review Reflex No
[2024-10-03 17:06] LABS: Albumin* 4.4 g/dL (3.3-5.0); Chloride* 110 mmol/L (96-114); Sodium* 140 mmol/L (135-149)
[2024-10-03 17:07] LABS: Potassium* 3.8 mmol/L (3.6-5.1)
[2024-10-03 17:09] LABS: Alanine Aminotransferase* 39 U/L (4-35); Anion Gap 7 mEq/L (7-15); Aspartate Amino Transferase* 41 U/L (12-35); Blood Urea Nitrogen* 10 mg/dL (7-30); Carbon Dioxide* 23 mmol/L (20-32); Creatinine* 0.6 mg/dL (0.5-1.5); Est. Creatinine Clearance* 36.67; Estimated Glomerular Filt Rate 92 ml/min
[2024-10-03 17:10] LABS: Alkaline Phosphatase* 64 U/L (40-150); Bilirubin Total* 0.5 mg/dL (0.1-1.5); Calcium* 9.5 mg/dL (8.4-10.6); Glucose* 86 mg/dL (60-115); Total Protein* 7.1 g/dL (6.0-8.3)
[2024-10-03 18:33] LABS: HCO3 VBG 24 mmol/L (21-28); Lactate* 1.1 mmol/L (0.5-1.9); PCO2 VBG 40 mmHG (40-50); PO2 VBG 31.7 mmHG (25-47); pH VBG 7.382 (7.32-7.43)
== END 2024-10-03 19:18 | disposition home or self-care (01) ==
PROVIDERS: Emergency Provider Emergency Medicine; PCP Internal Medicine
DX: R41.82 Altered mental status, unspecified (principal); R41.3 Other amnesia; I10 Essential (primary) hypertension
CPT/HCPCS: 36415; 70450; 70496; 70498; 70551; 80053; 82803; 83605; 84484; 85025; 93005; 99284; 99285; Q9967

== ENCOUNTER 2024-11-07 07:46 | Outpatient (CLI) | payer OTHER, SELFPAY | END 2024-11-07 07:47 | disposition home or self-care (01) | PROVIDERS: PCP Internal Medicine; Visit Provider Internal Medicine | DX: E78.5 Hyperlipidemia, unspecified (principal); E03.9 Hypothyroidism, unspecified; M85.89 Other specified disorders of bone density and structure, multiple sites; I10 Essential (primary) hypertension | CPT/HCPCS: 80048; 80061; 82306; 84443 ==

== ENCOUNTER 2025-02-06 13:02 | Outpatient (CLI) | payer OTHER, SELFPAY ==
--- NOTE | 2025-02-06 13:20 | CRLHL7_ITS ---
For Patients: As a result of the Century Cures Act, medical imaging exams and procedure reports are released immediately into your electronic medical record. You may view this report before your referring provider. If you have questions, please contact your health care provider. INDICATION: BILATERAL SCREENING MAMMOGRAM, ASYMPTOMATIC 79 Y/O FEMALE COMPARISON: 01/30/2023, 09/30/2021, 11/24/2019 TECHNIQUE: Digital mammogram in CC and MLO projections including computer-aided detection (CAD) and tomosynthesis. BREAST COMPOSITION: The breasts are heterogeneously dense, which may obscure small masses. FINDINGS: No suspicious findings. ASSESSMENT: BI-RADS 2 Benign RECOMMENDATION: Annual screening mammogram. A lay language report of this examination will be provided to the patient. Dictated by: Mike Hooker MD @ 02/07/2025 08:53:51 (Electronically Signed)
== END 2025-02-06 13:03 | disposition home or self-care (01) ==
LOC: MAMMO 13:03
PROVIDERS: PCP Internal Medicine; Visit Provider Internal Medicine
DX: Z12.31 Encounter for screening mammogram for malignant neoplasm of breast (principal); R92.333 Mammographic heterogeneous density, bilateral breasts
CPT/HCPCS: 77063; 77067